=== PATIENT | female | born 1950 | race Caucasian/White ===

== ENCOUNTER → 2017-01-11 | Outpatient (CLI) | payer OTHER ==
[~2017-01-11] MED LIST: APAP500 PO; ASPIRIN325 PO; B-100 COMPLEX1 EAC1 PO; BUPROPION XL300 MG PO; CENTRUM SILVER1 EAC3 PO; ESTER-C 500 MG1 EAC1 PO; FISH OIL 1,0001 EAC5 PO; LIPITOR20 MG PO; NEXIUM 40 MG CA40 M1 PO; PRINZIDE 20-121 EACH PO; SERTRALINE HCL100 MG PO; VITAMIN B-12250 MCG PO
[2017-01-11 10:36] LABS: CALCIUM 9.1 mg/dL (8.5-10.1); CREATININE 0.9 mg/dL (0.6-1.0); POTASSIUM 3.8 mmol/L (3.5-5.1)
== END ==
LOC: CAT 09:38
PROVIDERS: Internal Medicine
DX: N20.0 Calculus of kidney (principal); R10.9 Unspecified abdominal pain